=== PATIENT | male | born 1960 | race Caucasian/White ===

== ENCOUNTER 2017-07-27 10:37 | Emergency (ER) | payer OTHER ==
[2017-07-27] MEDS: DEXAMETHASONE 10 MG/ML 1 ML INJ IM (13:29)
[2017-07-27] MEDS: ALBUTEROL 0.083% (NEB) 2.5 MG/3 ML AMP HHN (13:32)
[2017-07-27] MEDS: IPRATROPIUM (NEB) 0.5 MG/2.5 ML AMP HHN (13:32)
[2017-07-27 13:59] LABS: ADD MAN DIFF? NO
[2017-07-27 14:04] LABS: WHITE BLOOD COUNT 7.6 10^3/ul (4.8-10.8)
[2017-07-27 14:04] LABS: BASOPHIL # 0.1 10^3/ul (0.0-0.1); BASOPHILS % 0.7 % (0.0-2.0); EOSINOPHILS # 0.2 10^3/ul (0.0-0.5); HEMATOCRIT 51.5 % (42.0-52.0); HEMOGLOBIN 17.8 g/dl (14.0-18.0); LYMPHOCYTES # 1.3 10^3/ul (0.8-2.9); LYMPHOCYTES % 17.1 % (15.0-51.0); MEAN CORPUSCULAR HEMOGLOBIN 32.2 pg (29.0-33.0); MEAN CORPUSCULAR HGB CONC 34.6 g/dl (32.0-37.0); MEAN CORPUSCULAR VOLUME 93.3 fl (82.0-101.0); MEAN PLATELET VOLUME 10.5 fl (7.4-10.4); MONOCYTE # 0.5 10^3/ul (0.3-0.9); MONOCYTES % 5.9 % (0.0-11.0); NEUTROPHIL # 5.6 10^3/ul (1.6-7.5); PLATELET COUNT 189 10^3/UL (140-415); RED BLOOD COUNT 5.52 10^6/ul (4.70-6.10)
[2017-07-27 14:28] LABS: ALANINE AMINOTRANSFERASE 88 IU/L (13-69); ALBUMIN 4.3 g/dl (3.3-4.9); ALBUMIN/GLOBULIN RATIO 1.34; ALKALINE PHOSPHATASE 75 IU/L (42-121); ANION GAP 16 (8-16); ASPARTATE AMINO TRANSFERASE 69 IU/L (15-46); BILIRUBIN,INDIRECT 0.9 mg/dl (0-1.1); BILIRUBIN,TOTAL 0.9 mg/dl (0.2-1.3); BLOOD UREA NITROGEN 16 mg/dl (7-20); CARBON DIOXIDE 25 mmol/L (21-31); CHLORIDE 108 mmol/L (97-110); CREATININE 0.72 mg/dl (0.61-1.24); GLUCOSE 161 mg/dl (70-220); LIPASE 36 U/L (23-300); POTASSIUM 3.6 mmol/L (3.5-5.1); SODIUM 145 mmol/L (135-144); TOTAL PROTEIN 7.5 g/dl (6.1-8.1)
[2017-07-27 14:33] LABS: B-TYPE NATRIURETIC PEPTIDE 28 PG/ML (0-125)
[2017-07-27 14:35] LABS: TROPONIN-I 0.015 ng/ml (0.00-0.12)
== END 2017-07-27 14:59 | disposition home or self-care (01) ==
LOC: FTE 10:37
DX: R05 Cough (principal); J45.909 Unspecified asthma, uncomplicated; F17.210 Nicotine dependence, cigarettes, uncomplicated; J45.901 Unspecified asthma with (acute) exacerbation
CPT/HCPCS: 36415; 71045; 80053; 83690; 83880; 84484; 85025; 93005; 94640; 94664; 96372; 99285-25

== ENCOUNTER 2017-09-26 10:15 | Emergency (ER) | payer OTHER ==
[2017-09-26] MEDS: ALBUTEROL 0.5% (NEB) 2.5 MG/0.5 ML AMP INH (10:58)
[2017-09-26] MEDS: IPRATROPIUM (NEB) 0.5 MG/2.5 ML AMP INH (10:58)
[2017-09-26 11:14] LABS: ADD MAN DIFF? NO
[2017-09-26 11:18] LABS: WHITE BLOOD COUNT 9.8 10^3/ul (4.8-10.8)
[2017-09-26 11:18] LABS: BASOPHIL # 0.1 10^3/ul (0.0-0.1); BASOPHILS % 0.7 % (0.0-2.0); EOSINOPHILS % 0.1 % (0.0-7.0); HEMOGLOBIN 19.2 g/dl (14.0-18.0); LYMPHOCYTES # 1.3 10^3/ul (0.8-2.9); LYMPHOCYTES % 13.7 % (15.0-51.0); MEAN CORPUSCULAR HEMOGLOBIN 32.5 pg (29.0-33.0); MEAN CORPUSCULAR HGB CONC 36.9 g/dl (32.0-37.0); MEAN PLATELET VOLUME 9.7 fl (7.4-10.4); MONOCYTE # 0.6 10^3/ul (0.3-0.9); MONOCYTES % 6.6 % (0.0-11.0); NEUTROPHIL # 7.7 10^3/ul (1.6-7.5); NEUTROPHILS % 78.6 % (39.0-77.0); PLATELET COUNT 310 10^3/UL (140-415); RED BLOOD COUNT 5.91 10^6/ul (4.70-6.10); RED CELL DISTRIBUTION WIDTH 11.8 % (11.5-14.5)
[2017-09-26] MEDS: ASPIRIN 81 MG TAB PO (11:33)
[2017-09-26] MEDS: SOD CHLORIDE 0.9% IV (11:33)
[2017-09-26 11:35] LABS: ANION GAP 24 (8-16); BLOOD UREA NITROGEN 12 mg/dl (7-20); CALCIUM 9.2 mg/dl (8.4-10.2); CARBON DIOXIDE 23 mmol/L (21-31); CHLORIDE 102 mmol/L (97-110); CREATININE 0.79 mg/dl (0.61-1.24); GLUCOSE 104 mg/dl (70-220); POTASSIUM 3.8 mmol/L (3.5-5.1); SODIUM 145 mmol/L (135-144)
[2017-09-26 11:37] LABS: INR 1.04; PROTIME 13.7 Sec (11.9-14.9); PT RATIO 1.1
[2017-09-26 11:38] LABS: PARTIAL THROMBOPLASTIN TIME 31.1 Sec (25.0-35.0)
[2017-09-26 11:53] LABS: B-TYPE NATRIURETIC PEPTIDE 23 PG/ML (0-125); TROPONIN-I < 0.012 ng/ml (0.00-0.12)
[2017-09-26 11:56] LABS: LACTIC ACID 2.9 mmol/L (0.5-2.0)
[2017-09-26 13:07] LABS: LACTIC ACID 1.4 mmol/L (0.5-2.0)
[2017-09-26] MEDS: LORAZEPAM 2 MG INJ IV (13:11)
== END 2017-09-26 14:44 | disposition home or self-care (01) ==
LOC: E/R 10:15
DX: R06.00 Dyspnea, unspecified (principal); J44.1 Chronic obstructive pulmonary disease with (acute) exacerbation; F10.10 Alcohol abuse, uncomplicated; F17.210 Nicotine dependence, cigarettes, uncomplicated; J45.901 Unspecified asthma with (acute) exacerbation
CPT/HCPCS: 36415; 71045; 80048; 83605; 83880; 84484; 85025; 85610; 85730; 87040; 93005; 94644; 94660; 96374; 99291-25

== ENCOUNTER 2017-10-24 13:10 | Emergency (ER) | payer OTHER ==
[2017-10-24 13:41] LABS: ADD MAN DIFF? NO
[2017-10-24 13:44] LABS: BASOPHIL # 0.1 10^3/ul (0.0-0.1); BASOPHILS % 0.9 % (0.0-2.0); EOSINOPHILS % 0.7 % (0.0-7.0); HEMATOCRIT 50.4 % (42.0-52.0); LYMPHOCYTES # 1.5 10^3/ul (0.8-2.9); LYMPHOCYTES % 26.2 % (15.0-51.0); MEAN CORPUSCULAR HEMOGLOBIN 31.7 pg (29.0-33.0); MEAN CORPUSCULAR HGB CONC 35.7 g/dl (32.0-37.0); MEAN CORPUSCULAR VOLUME 88.9 fl (82.0-101.0); MEAN PLATELET VOLUME 9.9 fl (7.4-10.4); MONOCYTE # 0.3 10^3/ul (0.3-0.9); MONOCYTES % 5.7 % (0.0-11.0); NEUTROPHIL # 3.9 10^3/ul (1.6-7.5); NEUTROPHILS % 66.2 % (39.0-77.0); PLATELET COUNT 280 10^3/UL (140-415); RED BLOOD COUNT 5.67 10^6/ul (4.70-6.10); RED CELL DISTRIBUTION WIDTH 11.5 % (11.5-14.5)
[2017-10-24 13:44] LABS: WHITE BLOOD COUNT 5.8 10^3/ul (4.8-10.8)
[2017-10-24] MEDS: ALBUTEROL 0.5% (NEB) 2.5 MG/0.5 ML AMP INH (13:47)
[2017-10-24] MEDS: IPRATROPIUM (NEB) 0.5 MG/2.5 ML AMP INH (13:47)
[2017-10-24 14:08] LABS: ANION GAP 19 (8-16); BLOOD UREA NITROGEN 13 mg/dl (7-20); CARBON DIOXIDE 25 mmol/L (21-31); CHLORIDE 105 mmol/L (97-110); GLUCOSE 119 mg/dl (70-220); POTASSIUM 4.3 mmol/L (3.5-5.1); SODIUM 145 mmol/L (135-144)
[2017-10-24 14:17] LABS: INR 1.17; PROTIME 15.1 Sec (11.9-14.9); PT RATIO 1.2
[2017-10-24 14:18] LABS: PARTIAL THROMBOPLASTIN TIME 32.5 Sec (25.0-35.0)
[2017-10-24 14:20] LABS: B-TYPE NATRIURETIC PEPTIDE < 11 PG/ML (0-125); TROPONIN-I < 0.012 ng/ml (0.00-0.12)
[2017-10-24] MEDS: FUROSEMIDE 40 MG INJ IV (14:22)
[2017-10-24] MEDS: METHYLPREDNISOLONE 125 MG INJ IV (14:22)
== END 2017-10-24 15:46 | disposition home or self-care (01) ==
LOC: E/R 13:10
DX: R06.00 Dyspnea, unspecified (principal); F10.10 Alcohol abuse, uncomplicated; F17.200 Nicotine dependence, unspecified, uncomplicated; F41.9 Anxiety disorder, unspecified; I10 Essential (primary) hypertension; J45.909 Unspecified asthma, uncomplicated; Z71.6 Tobacco abuse counseling
CPT/HCPCS: 71045; 80048; 83880; 84484; 85025; 85610; 85730; 93005; 94644; 96374; 96375; 99285-25

== ENCOUNTER 2017-12-22 14:59 | Emergency (ER) | payer OTHER ==
[2017-12-22] MEDS: ALBUTEROL 0.083% (NEB) 2.5 MG/3 ML AMP HHN (15:30)
[2017-12-22] MEDS: IPRATROPIUM (NEB) 0.5 MG/2.5 ML AMP HHN (15:30)
[2017-12-22] MEDS: predniSONE 20 MG TAB PO (15:34)
[2017-12-22] MEDS: AZITHROMYCIN 250 MG TAB PO (15:34)
== END 2017-12-22 18:12 | disposition home or self-care (01) ==
LOC: E/R 14:59
DX: J44.1 Chronic obstructive pulmonary disease with (acute) exacerbation (principal); I10 Essential (primary) hypertension; Z87.891 Personal history of nicotine dependence
CPT/HCPCS: 94660; 94664; 99284-25

== ENCOUNTER 2018-03-05 09:22 | Day surgery (SDC) | payer OTHER ==
[2018-03-05] MEDS ORDERED: PROPOFOL 40 ML (10:49)
== END 2018-03-05 11:22 | disposition home or self-care (01) ==
LOC: GIL 09:22
DX: Z12.11 Encounter for screening for malignant neoplasm of colon (principal); D12.5 Benign neoplasm of sigmoid colon; K64.8 Other hemorrhoids; E78.5 Hyperlipidemia, unspecified; I10 Essential (primary) hypertension; J45.909 Unspecified asthma, uncomplicated; Z87.891 Personal history of nicotine dependence
CPT/HCPCS: 45380; 88305

== ENCOUNTER 2018-07-14 11:11 | Emergency (ER) | payer OTHER ==
[2018-07-14] MEDS: ALBUTEROL 0.5% (NEB) 2.5 MG/0.5 ML AMP INH (12:18)
[2018-07-14] MEDS: IPRATROPIUM (NEB) 0.5 MG/2.5 ML AMP INH (12:18)
[2018-07-14 12:39] LABS: ADD MAN DIFF? NO
[2018-07-14 12:41] LABS: WHITE BLOOD COUNT 8.8 10^3/ul (4.8-10.8)
[2018-07-14 12:41] LABS: BASOPHIL # 0.1 10^3/ul (0.0-0.1); BASOPHILS % 0.6 % (0.0-2.0); EOSINOPHILS # 0.1 10^3/ul (0.0-0.5); EOSINOPHILS % 0.9 % (0.0-7.0); HEMATOCRIT 53.9 % (42.0-52.0); HEMOGLOBIN 18.2 g/dl (14.0-18.0); LYMPHOCYTES % 11.5 % (15.0-51.0); MEAN CORPUSCULAR HEMOGLOBIN 31.9 pg (29.0-33.0); MEAN CORPUSCULAR HGB CONC 33.8 g/dl (32.0-37.0); MEAN CORPUSCULAR VOLUME 94.6 fl (82.0-101.0); MEAN PLATELET VOLUME 9.8 fl (7.4-10.4); MONOCYTE # 0.8 10^3/ul (0.3-0.9); MONOCYTES % 9.2 % (0.0-11.0); NEUTROPHIL # 6.9 10^3/ul (1.6-7.5); NEUTROPHILS % 77.5 % (39.0-77.0); PLATELET COUNT 193 10^3/UL (140-415); RED CELL DISTRIBUTION WIDTH 12.2 % (11.5-14.5)
[2018-07-14 13:00] LABS: INR 1.02; PROTIME 13.5 Sec (11.9-14.9); PT RATIO 1.1
[2018-07-14 13:21] LABS: ALANINE AMINOTRANSFERASE 90 IU/L (13-69); ALBUMIN 4.4 g/dl (3.3-4.9); ALBUMIN/GLOBULIN RATIO 1.51; ALKALINE PHOSPHATASE 84 IU/L (42-121); ANION GAP 9 (5-13); ASPARTATE AMINO TRANSFERASE 80 IU/L (15-46); BILIRUBIN,INDIRECT 0.4 mg/dl (0-1.1); BILIRUBIN,TOTAL 0.4 mg/dl (0.2-1.3); BLOOD UREA NITROGEN 12 mg/dl (7-20); CALCIUM 9.3 mg/dl (8.4-10.2); CARBON DIOXIDE 25 mmol/L (21-31); CHLORIDE 105 mmol/L (97-110); CREATININE 0.67 mg/dl (0.61-1.24); Estimated GFR > 60 mL/min (>60); GLUCOSE 109 mg/dl (70-220); POTASSIUM 4.4 mmol/L (3.5-5.1); SODIUM 139 mmol/L (135-144); TOTAL PROTEIN 7.3 g/dl (6.1-8.1)
[2018-07-14] MEDS: DEXAMETHASONE 4 MG TAB PO (13:30)
[2018-07-14 13:31] LABS: B-TYPE NATRIURETIC PEPTIDE < 11 PG/ML (0-125); TROPONIN-I < 0.012 ng/ml (0.000-0.120)
[2018-07-14] MEDS: AZITHROMYCIN 500MG/NS (PMX) 250 ML IVPB (14:48)
== END 2018-07-14 16:10 | disposition home or self-care (01) ==
LOC: E/R 11:11
DX: J45.901 Unspecified asthma with (acute) exacerbation (principal); R05 Cough; I10 Essential (primary) hypertension; F17.210 Nicotine dependence, cigarettes, uncomplicated
CPT/HCPCS: 36415; 71045; 80053; 83605; 83880; 84484; 85025; 85610; 87040; 93005; 94644; 96365; 99285-25